=== PATIENT | female | born 1980 | race Caucasian/White ===

== ENCOUNTER → 2021-12-15 09:03 | Outpatient (CLI) | payer OTHER, SELFPAY ==
--- NOTE | ~2021-12-15 | CT_ITS ---
EXAMINATION: CT abdomen pelvis w con DATE: 12/15/2021 09:45 INDICATION: Pelvic mass. Pelvic and perineal pain. Right lower quadrant abdominal pain. TECHNIQUE: Computed tomography (CT) of the abdomen and pelvis was performed with 100 CC Omnipaque 350 intravenous contrast. Automated exposure control and iterative reconstruction technique were employe d. Exam dose: 792.02 mGy-cm total exam DLP. COMPARISON: None. FINDINGS: There is a 5.7 mm nodular density at the lateral base of the left lower lobe near the diaphragm. There is a 5 mm peripheral middle lobe nodule (series 4 image 23). 4 mm calcified nodule in the poste rior basilar right lower lobe, posterior costophrenic gutter, likely a calcified pulmonary granuloma. Bilateral lower lobe dependent discoid atelectasis. Normal heart size. No pericardial or pleural effusion. Small sliding hiatal hernia. No hepatic, splenic, pancreatic, adrenal or renal space-occupying mass lesion is detected. Normal caliber of the abdominal aorta. No intraperitoneal or retroperitoneal or pelvic mass lesion or adenopathy or ascites. IUD in expected position within the uterus. The adnexal areas and urinary bladder are unremarkable. Probable appendectomy. No bowel obstruction. There are some fluid levels in the nondilated small hong l. No bowel wall thickening, pneumatosis or intraperitoneal free air. No suspicious osteolytic or osteoblastic lesions are noted. 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 Reviewed, dictated and finalized at [facility]. IMPRESSION: Several lower lung pulmonary nodules are noted, possibly due to ol d pulmonary granulomatous disease Bilateral dependent lower lobe discoid atelectasis Small sliding hiatal hernia IUD Probable appendectomy
== END ==
DX: R19.00 Intra-abdominal and pelvic swelling, mass and lump, unspecified site (principal); R10.2 Pelvic and perineal pain; R91.8 Other nonspecific abnormal finding of lung field; K44.9 Diaphragmatic hernia without obstruction or gangrene; Z97.5 Presence of (intrauterine) contraceptive device
CPT/HCPCS: 74177; Q9967

== ENCOUNTER 2024-04-13 08:27 | Outpatient (CLI) | payer OTHER, SELFPAY ==
--- NOTE | ~2024-04-13 | CT_ITS ---
EXAMINATION:CT diagnostic chest wo con DATE: 04/13/2024 08:42 INDICATION: Other nonspecific abnormal finding of lungs. Lung nodules. TECHNIQUE: Computed tomography (CT) of the chest was performed without intravenous contrast. Automate d exposure control and iterative reconstruction technique were employed. The dose-length product (DLP ) was 271.44 mGy-cm. COMPARISON: CT abdomen and pelvis 12/15/2021 FINDINGS: There is mild emphysema. There is mild atelectasis bilaterally. There is a stable 6 mm nodu le in right middle lobe. There is a stable 6 mm nodule in left lower lobe. No pleural effusion. There is an 11 mm nodule in right thyroid lobe, likely not clinically significant. The heart size is lea l. No pericardial effusion. There is mild thoracic spondylosis. IMPRESSION: 1. Stable pulmonary nodules, likely benign. Reviewed, dictated and finalized at [facility].
== END 2024-04-13 08:28 | disposition home or self-care (01) ==
LOC: GOSHIMG 08:31
DX: R91.8 Other nonspecific abnormal finding of lung field (principal)
CPT/HCPCS: 71250